=== PATIENT | female | born 1985 | race American Indian/Alaskan Native ===

== ENCOUNTER 2019-03-19 13:27 | Emergency (ER) | payer MEDICAID ==
[2019-03-19 14:25] LABS: Bilirubin,Urine NEG (Negative); Blood,Urine NEG (Negative); Color,Urine Yellow (Yellow); HCG Qualitative,Urine Positive (Negative); Mucus,Urine FEW /HPF; Protein,Urine <15 mg/dL mg/dL (Negative); Urobilinogen,Urine < 2.0 mg/dL (<2.0)
[2019-03-19] MEDS ORDERED: REGLAN IV ONE (14:33)
[2019-03-19] MEDS ORDERED: TYLENOL PO ONE (14:33)
[2019-03-19] MEDS ORDERED: NACL 0.9% 1000 ML 1,000 ML IV ONE (14:33)
[2019-03-19 14:51] LABS: Basophils % (Auto) 0.8 % (0.0-1.8); Eosinophils # (Auto) 0.2 K/mm3 (0.0-0.4); Eosinophils % (Auto) 3.1 % (0.0-4.3); Hematocrit 40.7 % (30.3-42.9); Hemoglobin 13.7 gm/dl (10.1-14.3); Lymphocytes # (Auto) 2.1 K/mm3 (1.2-5.4); Lymphocytes % (Auto) 40.8 % (13.4-35.0); Mean Corpuscular HGB Conc 34 % (30-34); Mean Corpuscular Volume 93 fl (79-97); Monocytes # (Auto) 0.6 K/mm3 (0.0-0.8); Monocytes % (Auto) 11.2 % (0.0-7.3); Platelet Count 237 K/mm3 (140-440); Red Cell Distribution Width 14.2 % (13.2-15.2)
[2019-03-19 15:14] LABS: Albumin 3.9 g/dL (3.9-5); BUN/Creatinine Ratio 11; Blood Urea Nitrogen 9 mg/dL (7-17); Calcium 9.2 mg/dL (8.4-10.2); Hemolysis Index 131
--- NOTE | 2019-03-19 15:39 | Emergency Department Report ---
ED HPI - General Chief complaint: Abdominal Pain Stated complaint: ABD PAIN/VOMITING X3 WKS/MISSED CYCLE Time Seen by Provider: 03/19/19 14:32 Source: patient Mode of arrival: Ambulatory Limitations: No Limitations - History of Present Illness Initial comments: This is a 33-year-old female nontoxic, well nourished in appearance, no acute signs of distress presents to the ED with c/o of nausea and vomiting and pelvic pain x3 weeks. Patient denies any vaginal bleeding. Patient describes vomiting as food content and yellow gastric acid. Patient describes pelvic pain as cramping and aching with level of 3/10 diffuse. Patient denies chest pain, short of breath, fever, chills, headache, stiff neck, numbness or tingling. Patient denies any diarrhea or constipation. Patient denies any recent travels. Patient denies any allergies or significant past medical history. -: week(s) (3) Location: pelvis Radiation: none Severity: mild Severity scale (0 -10): 3 Quality: cramping, aching Consistency: constant Improves with: none Worsens with: none Associated symptoms: nausea/vomiting. denies: vaginal bleeding, vaginal discharge, abdominal pain, dysuria, headache, vision changes, malaise, dysparuenia, rash, seizure, shortness of breath, syncope, weakness Vaginal bleeding: none :: Yes Pre-aly care: none - Related Data Home Medications Medication Instructions Recorded Confirmed Last Taken Loratadine [Claritin] 10 mg PO DAILY 05/14/13 05/12/13 diphenhydrAMINE [Benadryl] 25 mg PO QHS PRN 05/14/13 05/11/13 guaiFENesin/DEXTROMETHORPHAN 1 each PO DAILY 05/14/13 05/14/13 05/12/13 [Mucinex Dm ER 1,200-60 mg Tab] Previous Rx's Medication Instructions Recorded Last Taken Type Azithromycin [Zithromax Z-ANURAG] 500 mg PO ONCE #1 pack 05/14/13 Unknown Rx Prednisone 20 mg PO QDAY #12 tablet 05/14/13 Unknown Rx Pseudoephed/Codeine/Guaifen 10 ml PO Q4H PRN #4 oz 05/14/13 Unknown Rx [Cheratussin DAC 30-10-100 mg/5 ml] Metoclopramide [Reglan] 10 mg PO TID PRN #20 tab 03/19/19 Unknown Rx 21/Iron Fu/Folic Acid 1 each PO DAILY #30 tablet 03/19/19 Unknown Rx [ Complete Caplet] Allergies Allergy/AdvReac Type Severity Reaction Status Date / Time No Known Allergies Allergy Verified 05/14/13 00:40 ED Review of Systems ROS: Stated complaint: ABD PAIN/VOMITING X3 WKS/MISSED CYCLE Other details as noted in HPI Constitutional: denies: chills, fever Eyes: denies: eye pain, eye discharge, vision change ENT: denies: ear pain, throat pain Respiratory: denies: cough, shortness of breath, wheezing Cardiovascular: denies: chest pain, palpitations Endocrine: no symptoms reported Gastrointestinal: nausea, vomiting, other (pelvic pain). denies: abdominal pain, diarrhea Genitourinary: denies: urgency, dysuria, discharge Musculoskeletal: denies: back pain, joint swelling, arthralgia Skin: denies: rash, lesions Neurological: denies: headache, weakness, paresthesias Psychiatric: denies: anxiety, depression Hematological/Lymphatic: denies: easy bleeding, easy bruising ED Past Medical Hx - Past Medical History Hx Hypertension: Yes Additional medical history: OVARIAN CA 3 YRS AGO - Surgical History Past Surgical History?: No - Social History Smoking Status: Current Every Day Smoker Substance Use Type: Alcohol - Medications Home Medications: Home Medications Medication Instructions Recorded Confirmed Last Taken Type Azithromycin [Zithromax Z-ANURAG] 500 mg PO ONCE #1 pack 05/14/13 Unknown Rx Loratadine [Claritin] 10 mg PO DAILY 05/14/13 05/12/13 History Prednisone 20 mg PO QDAY #12 tablet 05/14/13 Unknown Rx Pseudoephed/Codeine/Guaifen 10 ml PO Q4H PRN #4 oz 05/14/13 Unknown Rx [Cheratussin DAC 30-10-100 mg/5 ml] diphenhydrAMINE [Benadryl] 25 mg PO QHS PRN 05/14/13 05/11/13 History guaiFENesin/DEXTROMETHORPHAN 1 each PO DAILY 05/14/13 05/14/13 05/12/13 History [Mucinex Dm ER 1,200-60 mg Tab] Metoclopramide [Reglan] 10 mg PO TID PRN #20 tab 03/19/19 Unknown Rx 21/Iron Fu/Folic Acid 1 each PO DAILY #30 tablet 03/19/19 Unknown Rx [ Complete Caplet] ED Physical Exam - General Limitations: No Limitations General appearance: alert, in no apparent distress - Head Head exam: Present: atraumatic, normocephalic - Neck Neck exam: Present: normal inspection, full ROM. Absent: tenderness, meningismus, lymphadenopathy - Respiratory Respiratory exam: Present: normal lung sounds bilaterally. Absent: respiratory distress, wheezes, rales, rhonchi, stridor, chest wall tenderness, accessory muscle use, decreased breath sounds, prolonged expiratory - Cardiovascular Cardiovascular Exam: Present: regular rate, normal rhythm, normal heart sounds. Absent: bradycardia, tachycardia, irregular rhythm, systolic murmur, diastolic m urmur, rubs, gallop - GI/Abdominal GI/Abdominal exam: Present: soft, normal bowel sounds. Absent: distended, tenderness, guarding, rebound, rigid, diminished bowel sounds - Extremities Exam Extremities exam: Present: normal inspection, full ROM - Back Exam Back exam: Present: normal inspection, full ROM. Absent: tenderness, CVA tenderness (R), CVA tenderness (L), muscle spasm, paraspinal tenderness, vertebral tenderness, rash noted - Neurological Exam Neurological exam: Present: alert, oriented X3, normal gait - Psychiatric Psychiatric exam: Present: normal affect, normal mood - Skin Skin exam: Present: warm, dry, intact, normal color. Absent: rash ED Course Vital Signs 03/19/19 13:50 Temperature 98.3 F Pulse Rate 77 Respiratory 18 Rate Blood Pressure 112/68 O2 Sat by Pulse 97 Oximetry - Reevaluation(s) Reevaluation #1: 03/19/19 15:41 Patient is speaking in full sentences with no signs of distress noted. ED Medical Decision Making - Lab Data Result diagrams: 03/19/19 14:44 03/19/19 14:44 - Medical Decision Making This is a 33-year-old female that presents with pelvic pain during . Patient is stable and was examined by me. There is no abdominal tenderness. Negative signs of symptoms of appendicitis. Labs obtained. UA obtained. US OB obtained and dictated by the radiologist. Patient is notified of the report with no questions noted by the patient. Vital signs are stable prior to discharge. Patient received medical treatment in the ED which patient stated symptoms has resovled and subsided. A by mouth challenge has been obtained and patient tolerated well with no nausea vomiting. Patient was also instructed to Follow- up with a OBGYN doctor in 3-5 days or if symptoms worsen and continue return to emergency room as soon as possible. At time of discharge, the patient does not seem toxic or ill in appearance. No acute signs of distress noted. Patient agrees to discharge treatment plan of care. No further questions noted by the patient. Critical care attestation.: If time is entered above; I have spent that time in minutes in the direct care of this critically ill patient, excluding procedure time. ED Disposition Clinical Impression: Pelvic pain during Nausea & vomiting Qualifiers: Vomiting type: unspecified Vomiting Intractability: non-intractable Qualified Code(s): R11.2 - Nausea with vomiting, unspecified Disposition: DC-01 TO HOME OR SELFCARE Is pt being admited?: No Does the pt Need Aspirin: No Condition: Stable Instructions: (ED), Acute Nausea and Vomiting (ED) Additional Instructions: Follow-up with a OBGYN doctor in 3-5 days or if symptoms worsen and continue return to emergency room as soon as possible. Prescriptions: 21/Iron Fu/Folic Acid [ Complete Caplet] 1 each PO DAILY #30 tablet Metoclopramide [Reglan] 10 mg PO TID PRN #20 tab PRN Reason: Nausea Referrals: [facility] MD ARNULFO [Primary Care Provider] - 3-5 Days PRIMARY CAREMD [Referring] - 3-5 Days LIZETH HUITRON MD [Staff Physician] - 3-5 Days [facility] [Provider Group] - 3-5 Days Forms: Work/School Release Form(ED)
--- NOTE | 2019-03-19 16:20 | Ultrasound Report ---
OB Ultrasound HISTORY: pelvic pain. Hyperemesis for the past 3 weeks, recently missed cycle, beta hCG is 25,000 TECHNIQUE: Grayscale and color Doppler imaging performed. COMPARISON: No recent ultrasound is available for comparison. FINDINGS: Transabdominal and endovaginal imaging was performed. Uterus measures 10.0 x 5.8 x 6.1 cm with an intrauterine cystic structure near the fundus containing a pole measuring 4 mm which correlates with an EGA of 6 weeks and 0 days. Estimated delivery da te is 11/12/2019. heart rate is 67 bpm.. There is a simple cyst in the left ovary measuring 2.3 cm in maximal dimension. No pelvic free fluid. IMPRESSION: Single viable intrauterine gestation as outlined above. Signer Name: Mario Schilling MD Signed: 03/19/2019 4:15 PM Workstation Name: [id number]
[2019-03-19 16:44] LABS: Alanine Aminotransferase 15 units/L (7-56)
[2019-03-19 17:14] VITALS: BP 118/70
== END 2019-03-19 17:13 | disposition home or self-care (01) ==
LOC: ED 13:27
DX: O26.891 Other specified pregnancy related conditions, first trimester (principal); R10.2 Pelvic and perineal pain; O16.1 Unspecified maternal hypertension, first trimester; O99.331 Smoking (tobacco) complicating pregnancy, first trimester; Z79.899 Other long term (current) drug therapy; Z3A.01 Less than 8 weeks gestation of pregnancy
CPT/HCPCS: 36415; 76801; 76817; 80053; 81001; 81025; 84702; 85025; 96361; 96374; 99284; J2765; J7030

== ENCOUNTER 2019-10-16 21:25 | Outpatient (CLI) | payer MEDICAID ==
[2019-10-16 21:44] VITALS: BP 102/59
[2019-10-16] MEDS ORDERED: LACTATED RINGERS 1,000 ML ONE (22:08)
[2019-10-16] MEDS ORDERED: LACTATED RINGERS 1,000 ML IV ONE (23:33)
== END 2019-10-16 23:25 | disposition home or self-care (01) ==
LOC: TRG 21:25 → APU 21:31 → TRG 23:25
PROVIDERS: ATTEND Obstetrics & Gynecology
DX: O62.9 Abnormality of forces of labor, unspecified (principal); Z3A.35 35 weeks gestation of pregnancy
CPT/HCPCS: 59025; J7120; 96360